=== PATIENT | female | born 1980 | race Caucasian/White ===

== ENCOUNTER 2021-11-01 13:55 | Inpatient (IN) | payer BC ==
[~2021-11-01] VITALS: Ht 162.6 cm; Wt 81.3 kg
[2021-11-01] MEDS ORDERED: METHOCARBAMOL500 M1 PO (14:08)
[2021-11-01] MEDS ORDERED: MELOXICAM15 MG PO (14:08)
[2021-11-01] MEDS ORDERED: LAMOTRIGINE25 M1 PO (14:08)
[2021-11-01] MEDS ORDERED: LORAZEPAM0.5 M1 PO (14:08)
[2021-11-01] MEDS ORDERED: WELLBUTRIN XL150 M2 PO (14:08)
[2021-11-01 14:31] LABS: BASO # 0.02 K/mm3 (0.02-0.10); HEMATOCRIT 47.3 % (37.0-47.0); HEMOGLOBIN 15.9 g/dL (12.5-16.0); LYMPH# 0.88 K/mm3 (1.50-4.00); MEAN CELL VOLUME 89 fl (78-100); MEAN CORPUSCULAR HEMOGLOBIN 30 pg (27-31); MEAN CORPUSCULAR HGB CONC 34 g/dL (33-37); MEAN PLATELET VOLUME 9.3 fl (7.4-10.4); MONO # 0.32 K/mm3 (0.20-0.80); NEU # 6.45 K/mm3 (1.40-6.50); PLATELET COUNT 194 K/mm3 (130-400); RED CELL DISTRIBUTION WIDTH 11.8 % (11.5-14.5); WHITE BLOOD COUNT 7.7 K/mm3 (4.8-10.8)
[2021-11-01 14:35] LABS: ALBUMIN 3.7 g/dL (3.5-5.0)
[2021-11-01 14:36] LABS: POTASSIUM 3.1 mmol/L (3.5-5.1)
[2021-11-01 14:37] LABS: CALCIUM 8.8 mg/dL (8.3-10.5)
[2021-11-01 14:38] LABS: TOTAL PROTEIN 6.7 g/dL (6.4-8.3)
[2021-11-01 14:40] LABS: TOTAL BILIRUBIN 0.5 mg/dL (0.2-1.2)
--- NOTE | 2021-11-01 15:41 | NUR ---
Pt admitted from the ER. Pt is COVID positive. Pt taken to [facility] via wheelchair with CONSULTING SALES EXECUTIVE and nurse present. Pt transfers to the bathroom and bed with no walker or cane with no concerns. IV to left AC. Pt skin intact. No oxygen at this time. Pt denies pain. Will continue to monitor.
[2021-11-01 18:04] VITALS: BP 137/80
--- NOTE | 2021-11-01 19:00 | NUR ---
Report received from Albin Downing RN and care assumed. Pt resting in bed, IV infusing, no pain or needs at this time. Call light in reach.
--- NOTE | 2021-11-01 22:00 | NUR ---
Pt continues to deny pain or needs at this time. Call light in reach.
[2021-11-01 22:09] VITALS: BP 130/87
--- NOTE | 2021-11-02 02:45 | NUR ---
Pt states that she feels "Ok". Denies pain at this time. Resting in bed, call light in reach.
[2021-11-02 04:53] VITALS: BP 132/89
--- NOTE | 2021-11-02 07:27 | NUR ---
Report given to Jenn Queen RN and care transferred.
[2021-11-02 10:04] VITALS: BP 133/91
[2021-11-02 10:48] VITALS: BP 111/72
[2021-11-02 14:00] VITALS: BP 130/89
[2021-11-02 17:29] VITALS: BP 129/96
--- NOTE | 2021-11-02 17:30 | NUR ---
Patient alert and oriented. States she is feeling better than yesterday. Denies pain. States cough is improving, denies need for cough suppressant. Denies dizziness or shortness of breath. Incentive spirometer and instructions for use provided. Patient demonstrates use correctly. Patient denies needs or questions at this time.
--- NOTE | 2021-11-02 19:00 | NUR ---
Report received from Liana NEGRETE.
--- NOTE | 2021-11-02 21:00 | NUR ---
Patient rests in bed. Reports slight headache and tylenol given per patient request. States occasional productive couph. Afebrile. States has mild shortness of breath/weakness if standing too long during activty.
--- NOTE | 2021-11-02 21:00 | NUR ---
Patient reports she's been using IS x 10 reps each time and pulls about 1000. Encouraged to use q 1-2 hours while awake.
[2021-11-02 21:37] VITALS: BP 144/91
[2021-11-03 03:55] VITALS: BP 125/98
--- NOTE | 2021-11-03 05:00 | NUR ---
Patient resting awake in bed. States she's rested off and on. Reports tylenol helped for headache.
[2021-11-03 09:55] VITALS: BP 132/82
[2021-11-03 13:23] VITALS: BP 129/86
--- NOTE | 2021-11-03 13:40 | NUR ---
Precertification sent via [employer] at this time. Met interqual criteria and under medical review.
[2021-11-03 17:51] VITALS: BP 123/88
--- NOTE | 2021-11-03 20:08 | NUR ---
Report received from Malia NEGRETE. Patient sitting up in recliner. IV Remdesiver infusing and completed. IV site to LAC patent and flushed easily with 10 ML of saline. Patient A/O x4. Remains on airborne precautions for COVID pneumonia. Denies pain. Assessment completed. Using I.S. per report and pulls 1000 ML x 10 Reps. Has room privileges and keeps track of urine output on white board. Assessment completed. Denies wants or needs at this time.
[2021-11-03 22:25] VITALS: BP 130/98
--- NOTE | 2021-11-03 22:52 | NUR ---
Report to Sofie NEGRETE.
--- NOTE | 2021-11-04 04:30 | NUR ---
Patient awakened for IV med. Up to the bathroom to void sebastian clear urine. Rests back in bed. States "slept a little" "woke up and had panic attack" States she's had insomnia since 7th grade". Offered ativan and given.
[2021-11-04 05:49] VITALS: BP 133/89
[2021-11-04 08:00] LABS: HEMATOCRIT 43.7 % (37.0-47.0); HEMOGLOBIN 14.5 g/dL (12.5-16.0); LYMPH# 1.43 K/mm3 (1.50-4.00); MEAN CELL VOLUME 91 fl (78-100); MEAN CORPUSCULAR HEMOGLOBIN 30 pg (27-31); MEAN CORPUSCULAR HGB CONC 33 g/dL (33-37); MEAN PLATELET VOLUME 8.8 fl (7.4-10.4); MONO # 0.58 K/mm3 (0.20-0.80); PLATELET COUNT 273 K/mm3 (130-400); RED CELL DISTRIBUTION WIDTH 11.8 % (11.5-14.5); WHITE BLOOD COUNT 7.7 K/mm3 (4.8-10.8)
[2021-11-04 08:10] LABS: ALBUMIN 3.1 g/dL (3.5-5.0); POTASSIUM 3.1 mmol/L (3.5-5.1)
[2021-11-04 08:12] LABS: CALCIUM 8.5 mg/dL (8.3-10.5)
[2021-11-04 08:13] LABS: TOTAL PROTEIN 5.6 g/dL (6.4-8.3)
[2021-11-04 08:15] LABS: TOTAL BILIRUBIN 0.4 mg/dL (0.2-1.2)
[2021-11-04 10:20] VITALS: BP 130/90
--- NOTE | 2021-11-04 12:13 | NUR ---
Patient reporst SOA on exertion. O2 sat with ambulation from chair to bathroom 87-89%. 2L O2 per NC applied with exertion. O2 sat 93% 2L per NC
[2021-11-04 13:47] VITALS: BP 137/97
--- NOTE | 2021-11-04 14:00 | NUR ---
OK to extend IV in left AC for 96h per Maricruz Castro, BRANCH OPERATIONS SPECIALIST
[2021-11-04 18:05] VITALS: BP 133/87
--- NOTE | 2021-11-04 19:36 | NUR ---
Report received from Malia NEGRETE. Patient in BR washing self up. Oxygen off at this time and states she feels "pretty good" and is not SOA but the oxygen helps PRN. PO medications, 3rd dose K+, PO Diflucan and SQ Lovenox administered at this time. Assessment completed. Up ad-lelia in room. Using I.S. and encouraged to use Q 1 hour W/A. States she pulls 1000 ML x10. Denies wants or needs at this time.
--- NOTE | 2021-11-04 21:45 | NUR ---
Requested and given Ativan 0.5 MG to assist with insomnia. VS obtained and stable. Fresh water and pudding provided. Utilizes Oxygen PRN. Denies pain or further needs. Up ad-lelia in room.
[2021-11-04 22:23] VITALS: BP 127/89
[2021-11-05 02:00] VITALS: BP 128/92
--- NOTE | 2021-11-05 02:19 | NUR ---
Resting quietly. Not wearing oxygen at this time SAO2 94% on RA.
--- NOTE | 2021-11-05 04:14 | NUR ---
Awakened for IV antibiotic. Up to BR ad-lelia without oxygen. SOA with exertion. Spot checked SPO2 when returning from BR 89-90% on RA. IV Doxycycline started to run over 1 hour. INT to LAC patent. Denies pain or needs.
[2021-11-05 05:19] VITALS: BP 143/102
--- NOTE | 2021-11-05 05:20 | NUR ---
IV antibiotic completed. INT flushed easily with 10 ML of NS. B/P 143/102, rechecked and continues to be elevated. Denies H/A, blurred or double vision. Rests in bed. Will continue to monitor. Advised to notify staff of any Sx. H/A, blurred vision, etc..
--- NOTE | 2021-11-05 06:03 | NUR ---
Blood Pressure of 143/102 report to Maricruz Castro APRN.
--- NOTE | 2021-11-05 07:19 | NUR ---
Report to Caridad NEGRETE.
[2021-11-05 08:54] LABS: ALBUMIN 3.4 g/dL (3.5-5.0); POTASSIUM 3.8 mmol/L (3.5-5.1)
[2021-11-05 08:56] LABS: CALCIUM 8.9 mg/dL (8.3-10.5)
[2021-11-05 08:57] LABS: TOTAL PROTEIN 5.8 g/dL (6.4-8.3)
[2021-11-05 08:59] LABS: TOTAL BILIRUBIN 0.5 mg/dL (0.2-1.2)
[2021-11-05 09:42] VITALS: BP 123/88
--- NOTE | 2021-11-05 10:05 | NUR ---
Spoke with Charity, she states that she lives in [place] and has a fiance and two children. the children are old enough to help at home. Charity states that when she walks to the restroom she desats to 85% on room air. She is okay with getting oxygen for home use if needed.
[2021-11-05 14:05] VITALS: BP 128/79
--- NOTE | 2021-11-05 17:57 | NUR ---
Oxygen S[place] on RA at rest 96% Oxygen Saturation on RA with Ambulation 92%. does not meet criteria for home oxygen. Will check oxygen demands again closer to discharge.
--- NOTE | 2021-11-05 18:02 | NUR ---
Patient is resting in recliner, IV medication being administered per order. Patient states she is feeling better today. Patient has been putting on 2L of NC when she returns from bathroom. Patients o2 is 96% on RA while at rest and 92% when ambulating in room. Advised patient that she can use PRN albuterol inhaler every 4 hours as needed. VS have been WNL. Denies needs
[2021-11-05 18:21] VITALS: BP 143/88
[2021-11-05 22:00] VITALS: BP 141/95
[2021-11-06 05:53] VITALS: BP 142/104
--- NOTE | 2021-11-06 07:00 | NUR ---
Report received from CADEN Guzman.
[2021-11-06 07:13] LABS: BASO # 0.01 K/mm3 (0.02-0.10); EOS # 0.03 K/mm3 (0.04-0.40); EOS % 0.3 % (1.0-5.0); HEMATOCRIT 45.4 % (37.0-47.0); HEMOGLOBIN 14.8 g/dL (12.5-16.0); LYMPH# 1.71 K/mm3 (1.50-4.00); MEAN CELL VOLUME 91 fl (78-100); MEAN CORPUSCULAR HEMOGLOBIN 30 pg (27-31); MEAN CORPUSCULAR HGB CONC 33 g/dL (33-37); MEAN PLATELET VOLUME 8.6 fl (7.4-10.4); MONO # 0.61 K/mm3 (0.20-0.80); NEU # 6.19 K/mm3 (1.40-6.50); PLATELET COUNT 338 K/mm3 (130-400); RED BLOOD COUNT 4.99 M/mm3 (4.10-5.30); RED CELL DISTRIBUTION WIDTH 11.9 % (11.5-14.5); WHITE BLOOD COUNT 8.7 K/mm3 (4.8-10.8)
[2021-11-06 07:22] LABS: ALBUMIN 3.3 g/dL (3.5-5.0); POTASSIUM 3.5 mmol/L (3.5-5.1)
[2021-11-06 07:23] LABS: CALCIUM 8.6 mg/dL (8.3-10.5)
[2021-11-06 07:26] LABS: TOTAL BILIRUBIN 0.5 mg/dL (0.2-1.2)
[2021-11-06] MEDS ORDERED: DEXAMETHASONE6 M1 PO (08:51)
[2021-11-06] MEDS ORDERED: MORGIDOX 2X100100 MG PO (08:52)
--- NOTE | 2021-11-06 09:45 | NUR ---
Tele D/Ronald at this time. Discharge edcuation given, pt states understanding.
[2021-11-06 10:10] VITALS: BP 143/89
[2021-11-06] MEDS ORDERED: DIFLUCAN100 M1 PO (11:56)
--- NOTE | 2021-11-06 12:00 | NUR ---
IV D/Ronald at this time.
--- NOTE | 2021-11-06 12:05 | NUR ---
Pt left the facility at this time. Pt ambulated with REFUELING RAMP ATTENDANT present with no concerns. Left in POV.
== END 2021-11-06 12:05 | disposition home or self-care (01) | DRG 177 ==
LOC: ED 13:55 → MED/SURG 15:41
PROVIDERS: Nurse Practitioner; Physician Assistant; ADMIT Family Medicine
PROC: XW033E5 Introduction of Remdesivir Anti-infective into Peripheral Vein, Percutaneous Approach, New Technology Group 5 (ICD-10-PCS; principal; 2021-11-01)
PROC: 3E0DX3Z Introduction of Anti-inflammatory into Mouth and Pharynx, External Approach (ICD-10-PCS; 2021-11-01)
DX: U07.1 COVID-19 (principal); J12.82 Pneumonia due to coronavirus disease 2019; E87.6 Hypokalemia; F32.A Depression, unspecified; F41.9 Anxiety disorder, unspecified
CPT/HCPCS: J0696; J1100; J1650; J7050; Q9967